=== PATIENT | female | born 1985 | race Caucasian/White ===

== ENCOUNTER 2016-08-03 12:13 | Outpatient (CLI) | payer MEDICAID | END 2016-08-03 12:14 | disposition home or self-care (01) | DX: Z36 Encounter for antenatal screening of mother (principal) ==

== ENCOUNTER 2016-09-01 08:30 | Outpatient (CLI) | payer MEDICAID | END 2016-09-01 08:31 | disposition home or self-care (01) | DX: Z36 Encounter for antenatal screening of mother (principal) ==

== ENCOUNTER 2016-10-12 19:28 | Outpatient (CLI) | payer MEDICAID | END 2016-10-12 19:29 | disposition home or self-care (01) | DX: Z36 Encounter for antenatal screening of mother (principal) ==

== ENCOUNTER 2016-10-29 12:36 | Outpatient (CLI) | payer MEDICAID ==
--- NOTE | 2016-10-31 07:20 | Ultrasound Report ---
OBSTETRICAL ULTRASOUND: 10/29/2016 CLINICAL HISTORY: Patient's for anatomy screening. TECHNIQUE: Real-time scanning was performed with auto service representative static images obtained. LAST MENSTRUAL PERIOD 05/31/2016 Clinical Age 21 weeks 4 days US Age 22 weeks 4 days EFW Hadlock 486 g EFW% Hadlock -- Heart Rate 142 bpm EDC 21 weeks 4 days US EDC 22 weeks 4 days BPD Hadlock 23 weeks 2 days; means cm 56.4 HC Hadlock 22 weeks 2 days; means cm 201.2 AC Hadlock 22 weeks 1 day; means cm 171.5 FL Hadlock 22 weeks 2 days; means cm 38.2 Presentation variable Placental Location posterior Cervical Length 4.28 cm Amniotic Fluid 17.6 FINDINGS: Single fetus is noted in variable positions within the uterus. Composite gestational age by ultrasound is 22 weeks 4 days. EDC by ultrasound is 02/28/2017. This is 7 days more advanced than expected as estimated from patient's LMP. This degree of growth is within normal limits. anatomy at the present time is normal including head, body, spine, four chamber view, cardiac outflow tract, and bladder. heart rate is 142 beats per minute and regular. Normal movement is noted. Placenta is posterior. Amniotic fluid volume index is generous, but still within normal limits measuring 17.6. Umbilical cord may be a two vessel cord. Suggest patient return for reevaluation of the umbilical cord for further evaluation. Umbilical cord insertion site is eccentric. It lies 2-3 cm from the placental edge. If patient does return for reevaluation of the umbilical cord, its insertion site and the placenta should also be evaluated. IMPRESSION: SINGLE FETUS IS NOTED IN VARIABLE POSITIONS WITHIN THE UTERUS WITH COMPOSITE GESTATIONAL AGE BY ULTRASOUND TODAY OF 22 WEEKS 4 DAYS. EDC BY ULTRASOUND IS 02/28/2017. GESTATIONAL AGE BY ULTRASOUND IS 1 WEEK MORE ADVANCED THAN EXPECTED CALCULATED FROM CLINICAL LMP. THIS DEGREE OF GROWTH IS WITHIN NORMAL LIMITS. FETUS ANATOMICALLY APPEARS WITHIN NORMAL LIMITS. UMBILICAL CORD SHOWS EQUIVOCAL FINDINGS IN REGARD TO A TWO VESSEL CORD. SUGGEST PATIENT RETURN FOR FOCAL UMBILICAL CORD EVALUATION. PLACENTA IS POSTERIOR. UMBILICAL CORD INSERTION SITE IS MILDLY ECCENTRIC. IT LIES 2-3 CM FROM THE EDGE OF THE PLACENTA. IF PATIENT RETURNS FOR FOCAL UMBILICAL CORD EVALUATION SUGGEST THE INSERTION SITE ALSO BE REEVALUATED. AMNIOTIC FLUID VOLUME IS GENEROUS, BUT STILL WITHIN NORMAL LIMITS MEASURING 17.6 CM. MTDD
== END 2016-10-29 12:37 | disposition home or self-care (01) ==
LOC: DI 12:36
PROVIDERS: ATTEND Obstetrics & Gynecology
DX: Z36 Encounter for antenatal screening of mother (principal)
CPT/HCPCS: 76811

== ENCOUNTER 2016-12-14 11:23 | Outpatient (CLI) | payer MEDICAID | END 2016-12-14 11:24 | disposition home or self-care (01) | DX: Z34.90 Encounter for supervision of normal pregnancy, unspecified, unspecified trimester (principal) ==

== ENCOUNTER 2016-12-16 13:00 | Outpatient (CLI) | payer MEDICAID ==
--- NOTE | 2016-12-17 14:50 | Ultrasound Report ---
OB FOLLOWUP: 12/16/2016 CLINICAL INDICATION: Followup placental cord insertion. TECHNIQUE: Real-time scanning was performed with home office representative static images obtained. LAST MENSTRUAL PERIOD 05/31/2016 Clinical Age --- US Age 30 weeks 1 day EFW Hadlock 1515 g EFW% Hadlock --- Heart Rate 138 bpm EDC 03/07/2017 US EDC 02/23/2017 BPD Hadlock 30 weeks 0 days; Mean mm 74.9 HC Hadlock 30 weeks 2 days; Mean mm 276.4 AC Hadlock 30 weeks 0 days; Mean mm 258.7 FL Hadlock 30 weeks 2 days; Mean mm 57.8 Presentation variable Placental Location --- Cervical Length 3.84 cm Amniotic Fluid 16.02 cm There is a single viable intrauterine gestation, in variable position. heart rate is 138 BPM. The placenta is posterior, without evidence of previa. Umbilical cord insertion into the placenta appears unremarkable on today's examination. The cord is a three vessel cord. Amniotic fluid volume is normal, with an ANN-MARIE of 16. By size, the fetus measures 30.1 weeks (29.6 weeks by previous sonogram). No free fluid or adnexal lesion is appreciated. IMPRESSION: SINGLE VIABLE INTRAUTERINE GESTATION, WITH EXPECTED GROWTH. UNREMARKABLE PLACENTAL CORD INSERTION AND THREE VESSEL CORD CONFIRMED ON TODAY' S EXAMINATION. DANIELD
== END 2016-12-16 13:01 | disposition home or self-care (01) ==
LOC: DI 13:00
PROVIDERS: ATTEND Obstetrics & Gynecology
DX: Z34.90 Encounter for supervision of normal pregnancy, unspecified, unspecified trimester (principal)
CPT/HCPCS: 76816

== ENCOUNTER 2017-02-08 08:00 | Outpatient (CLI) | payer MEDICAID | END 2017-02-08 08:01 | disposition home or self-care (01) | LOC: LAB.R 08:00 | PROVIDERS: ATTEND Obstetrics & Gynecology | DX: Z34.83 Encounter for supervision of other normal pregnancy, third trimester (principal) | CPT/HCPCS: 87081 ==

== ENCOUNTER 2017-02-28 07:59 | Inpatient (IN) | payer MEDICAID ==
[2017-02-28] MEDS ORDERED: SODIUM CHLORIDE FLUSH 0.9% 10 ML SYRINGE IVP PRN (09:33)
[2017-02-28] MEDS ORDERED: ONDANSETRON 4 MG/2 ML VIAL IVP PRN (09:33)
[2017-02-28] MEDS ORDERED: fentaNYL 100 MCG/2 ML VIAL IVP PRN (09:33)
--- NOTE | 2017-02-28 09:40 | PROVIDER PROGRESS NOTE ---
Subjective - Prog Note Date Prog Note Date: 02/28/17 Prog Note Time: 09:37 - Subjective Pt reports feeling: No change Objective - Vital Signs/Intake & Output Vital Signs: Vital Signs x48h Temp Pulse Resp BP Pulse Ox 02/28/17 08:30 98.2 F 85 18 124/71 99 Assessment/Plan - Problem List (1) Rupture of membranes Impression: 31 yo with a 39w0d IUP SROM since 04:00 Early active labor Contractions Q 3-5 minutes Start oxytocin for delivery to prevent chorioamnionitis Admitted. H&P dictated [id number] (2) Labor established Impression: Early active labor Start pitocin for augmentation Expect Patient desires an unmedicated delivery
[2017-02-28] MEDS ORDERED: OXYTOCIN/SODIUM CHLORIDE 250 ML IV SCH (10:00)
--- NOTE | 2017-02-28 10:31 | HISTORY & PHYSICAL EXAMINATION ---
DATE OF ADMISSION: 02/28/2017 IDENTIFICATION: A 31-year-old G4, P2-0-1-2 with a 39-0/7 week intrauterine . EDC is 03/07, changed by an 8-week ultrasound. PRESENT ILLNESS: This is a patient of [facility] who presented to Labor and Delivery with complaints of contractions, as well as loss of fluid beginning at about 3:30 or 4 o'clock this morning. Initially her contractions were every 15-20 minutes and now it has been reported to be every 3-5 minutes. Nitrazine is positive and the ferning is positive as well. heart tones show a baseline in the 120s with a reactive category 1 tracing. There is some short variables down to the 90s. The patient has had care with us consistently since 07/29/2016 at 8 weeks gestation. So far, she has had 9 visits with us. This has essentially been unremarkable. PAST MEDICAL HISTORY: None. She denies any hypertension, diabetes, or hypothyroidism. PAST SURGICAL HISTORY: None. She denies a cholecystectomy or appendectomy. MEDICATIONS: vitamins. SOCIAL HISTORY: She denies any tobacco, alcohol or illicit drug use. Her significant other's name is Hai and they have a have son, Gary; a daughter , Sarah; and this is a female fetus. She would like to have Nexplanon for control after delivery. PAST OBSTETRICAL HISTORY: One spontaneous . Two term vaginal deliveries , the first at 37 weeks, the second one at 41 weeks. The largest baby weighed 7 pounds 6 ounces. PAST GYNECOLOGIC HISTORY: She denies any abnormal Pap smears or sexually transmitted diseases. FAMILY HISTORY: She denies any female carcinoma, including the breasts, ovaries or uterus. REVIEW OF SYSTEMS: Negative unless otherwise stated. She denies any nausea, vomiting, fevers, chills, diarrhea, or constipation. OBJECTIVE VITAL SIGNS: Temperature is 98.2, heart rate 85, blood pressure 124/71, respiratory rate 18. O2 saturation is 99% on room air. GENERAL: The patient is a well-developed, well-nourished female in no apparent distress. She is alert and oriented x3. CARDIOVASCULAR: Rate is regular, no murmurs or rubs. PULMONARY: Clear to auscultation bilaterally. ABDOMEN: Gravid, nontender. Most recent fundal height measurement was 34 cm at 37 weeks' gestation, estimated weight 7-1/2 pounds. Cervical examination per RN today revealed she is 4 cm dilated, 70% effaced, -2 station, mid position. LABORATORY: laboratories reveal that she is A positive, antibody screen immune, HIV negative, RPR nonreactive, rubella immune, hepatitis B surface antigen nonreactive. Pap smear is a low-grade squamous intraepithelial lesion. Gonorrhea and chlamydia are both negative. anatomical survey consistent with dates and within normal limits. The placenta is posterior. Cervical length is 4.28 cm. ANN-MARIE 17.6 cm. Umbilical cord may be 2 vessel. Eccentric umbilical cord insertion lying 2 to 3 cm from the placental edge. Repeat ultrasound at about 30 weeks' gestation on 12/16/2016 shows EFW of 1515 grams. Placenta length of 3.84 cm and amniotic fluid index of 16.02 cm. The placenta is posterior without evidence of previa. Umbilical cord insertion into Placenta appears unremarkable and there was a 3-vessel umbilical cord. 1 hour GTT is 131 and GBS screen is negative. She received the 2016 flu vaccine in March and a Tdap at 32 weeks on 01/13/2017. ASSESSMENT 1. A 31-year-old G4, P2-0-1-2 with a 39-0/7 week intrauterine . 2. Spontaneous rupture of membranes at 0330 or 0400. 3. Early active labor. PLAN 1. We will admit. 2. Obtain CBC and type and hold. 3. The patient desires an unmedicated delivery. 4. Anticipate spontaneous vaginal delivery. 5. We will augment with Pitocin. 6. Start antibiotics at 18 hours, rupture of membranes if undelivered. 7. Anticipate giving the patient Nexplanon for contraception after delivery. JOB #: [id number] EXT JOB #:[id number] DAI
[2017-02-28] MEDS: LACTATED RINGERS 1,000 ML IV SCH (10:33)
[2017-02-28 11:44] LABS: BASOPHILS % (AUTO) 0.2 %; EOSINOPHILS # (AUTO) 0.1 10^3/uL (0.0-0.7); EOSINOPHILS % (AUTO) 1.1 %; HCT - HEMATOCRIT 36.3 % (37.0-47.0); HGB - HEMOGLOBIN 12.1 g/dL (12.0-16.0); LYMPHOCYTES # (AUTO) 1.9 10^3/uL (1.5-3.5); MEAN CORPUSCULAR HEMOGLOBIN 28.1 pg (27.0-31.0); MEAN CORPUSCULAR HGB CONC 33.4 g/dL (32.0-36.0); MEAN CORPUSCULAR VOLUME 84.1 fL (81.0-99.0); MEAN PLATELET VOLUME 8.8 fL (7.9-10.8); MONOCYTES # (AUTO) 0.5 10^3/uL (0.0-1.0); MONOCYTES % (AUTO) 4.1 %; NEUTROPHILS # (AUTO) 9.5 10^3/uL (1.5-6.6); NEUTROPHILS % (AUTO) 78.6 %; RED BLOOD COUNT 4.31 10^6/uL (4.20-5.40)
[2017-02-28] MEDS ORDERED: LIDOCAINE 1% 50 ML MDV ONE (12:04)
[2017-02-28] MEDS ORDERED: MINERAL OIL LIGHT 10 ML MC ONE (12:04)
--- NOTE | 2017-02-28 12:34 | DELIVERY NOTE ---
Delivery Note - Labor Labor: positive: Spontaneous - Delivery Method Delivery Method: positive: Spontaneous vaginal delivery - Presentation Presentation: positive: Vertex, OA - occiput anterior - Nuchal Cord Nuchal Cord: positive: Present (X 1), Reduced - Amniotic Fluid Description Amniotic Fluid Description: positive: Clear - Episiotomy Type Episiotomy Type: positive: None - Laceration Laceration: positive: None - Delivery Outcome Delivery Outcome: positive: Livebirth - Brandon: positive: Placed in direct skin contact with mother sex: positive: Female : 9 : 9 - Cord Cord: positive: 3 vessels - Placenta Placenta: positive: Intact, Spontaneous - Estimated Blood Loss Estimated Blood Loss (in cc): 250 - Post Delivery Events Post Delivery Events: positive: No post delivery events - Delivery Comments (Free Text/Narrative) Delivery Comments (Free Text/Narrative): 31 yo with a 39w0d IUP presented to L&D with complaints of LOF since 03: 30 or 04:00 and contractions. On initial RN CVE, 4/90/-1. Baseline FHT's 120's and reactive with a category 1 tracing. Contractions Q 3-5 minutes. Positive ferning and nitrazine. The patient was admitted and given 1 dose of fentanyl 50 mcg IV. She viable female fetus, Elisha. Nuchal cord x 1 reduced and compound left arm delivered posteriorly. Placenta delivered spontaneously, intact with 3VC. EBC 250 mL. Intact perineum. No complications. Routine care. Nexplanon planned for contraception. Rx for ibuprofen to be sent to [facility] [place]Note 2] in [place]. Will handwrite Rx for vicodin for breakthrough pain. Labs, EKG, Meds, Allergy - Lab Results Fish Bones: 02/28/17 09:33 Other Lab Results: Lab Results x24hrs 02/28/17 Range/Units 09:33 WBC 12.0 H (4.8-10.8) x10^3/uL RBC 4.31 (4.20-5.40) 10^6/uL Hgb 12.1 (12.0-16.0) g/dL Hct 36.3 L (37.0-47.0) % MCV 84.1 (81.0-99.0) fL MCH 28.1 (27.0-31.0) pg MCHC 33.4 (32.0-36.0) g/dL RDW 14.0 (12.0-15.0) % Plt Count 223 (130-450) 10^3/uL MPV 8.8 (7.9-10.8) fL Neut # 9.5 H (1.5-6.6) 10^3/uL Lymph # 1.9 (1.5-3.5) 10^3/uL Douglas # 0.5 (0.0-1.0) 10^3/uL Eos # 0.1 (0.0-0.7) 10^3/uL Baso # 0.0 (0.0-0.1) 10^3/uL Absolute Nucleated RBC 0.00 x10^3/uL Nucleated RBCs 0.0 /100WBC - Medications Medications: Ambulatory Orders Medication Instructions Recorded Confirmed Omeprazole Magnesium [Prilosec Otc] 20 mg PO DAILY #30 tablet. 06/06/14 Omeprazole 20 mg PO DAILY #30 capsule. 08/12/14 Ondansetron Odt [Zofran] 4 mg TL Q6H PRN #10 tablet 08/12/14 - Allergy Allergy: Allergies Allergy/AdvReac Type Severity Reaction Status Date / Time No Known Drug Allergies Allergy Verified 10/10/12 15:17 Omeprazole Magnesium [Prilosec Otc] 20 mg PO DAILY #30 tablet. 06/06/14 Omeprazole 20 mg PO DAILY #30 capsule. 08/12/14 Ondansetron Odt [Zofran] 4 mg TL Q6H PRN #10 tablet 08/12/14
[2017-02-28] MEDS ORDERED: HYDROCORTISONE/PRAMOXINE 10 GM PR PRN (12:37)
[2017-02-28] MEDS ORDERED: OXYTOCIN/SODIUM CHLORIDE 250 ML IV ONE (12:37)
[2017-02-28] MEDS ORDERED: WITCH HAZEL/GLYCERIN 1 EACH MED..PAD TOP PRN (12:37)
[2017-02-28] MEDS ORDERED: MAGNESIUM HYDROXIDE 2,400 MG/30 ML UDC PO PRN (12:37)
[2017-02-28] MEDS ORDERED: HYDROcod/ACETAM 5/325 MG TABLET PO PRN (12:37)
[2017-02-28] MEDS ORDERED: diphenhydrAMINE 25 MG CAPSULE PO PRN (12:37)
[2017-02-28] MEDS ORDERED: SIMETHICONE CHEW 80 MG TABLET PO PRN (12:37)
[2017-02-28] MEDS: ACETAMINOPHEN 325 MG TABLET PO SCH ×2 (13:56→21:52)
[2017-02-28] MEDS: CELECOXIB 100 MG CAPSULE PO SCH (18:03)
[2017-02-28] MEDS ORDERED: CELECOXIB 100 MG CAPSULE PO SCH (21:00)
[2017-02-28] MEDS ORDERED: DOCUSATE SODIUM 100 MG CAPSULE PO SCH (21:00)
[2017-02-28] MEDS ORDERED: ceFAZolin 2 GM/50 ML 50 ML IV ONE (22:00)
[2017-03-01] MEDS: CELECOXIB 100 MG CAPSULE PO SCH (06:17)
[2017-03-01] MEDS ORDERED: PANTOPRAZOLE 40 MG TABLET PO SCH (07:00)
[2017-03-01] MEDS: ACETAMINOPHEN 325 MG TABLET PO SCH (07:54)
[2017-03-01 08:21] VITALS: BP 128/76
--- NOTE | 2017-03-01 08:42 | PROVIDER PROGRESS NOTE ---
Subjective - Prog Note Date Prog Note Date: 03/01/17 Prog Note Time: 08:40 - Subjective Pt reports feeling: Improved Subjective: Patient sitting in bed, holding sleeping baby. Got about 2 hours of sleep last PM. Baby latching well. Decreasing lochia. Has urinated three times already. No nausea or vomiting. Mild pain. taking care of kids at home. Planning to go home today. Objective - Vital Signs/Intake & Output Reviewed Vital Signs: Yes Vital Signs: Vital Signs x48h Temp Pulse Resp BP Pulse Ox 03/01/17 08:00 98.1 F 86 18 128/76 99 Intake & Output: Intake & Output 02/26/17 02/27/17 02/28/17 03/01/17 23:59 23:59 23:59 23:59 Intake Total 400 Output Total 250 Balance 150 - Objective General Appearance: positive: No acute distress Eyes Bilateral: positive: Normal inspection Abdomen: positive: Non-tender (Firm fundus) Neurologic/Psychiatric: positive: Oriented x3 - Lab Results Fish Bones: 02/28/17 09:33 Other Labs: Lab Results x24hrs 02/28/17 Range/Units 09:33 WBC 12.0 H (4.8-10.8) x10^3/uL RBC 4.31 (4.20-5.40) 10^6/uL Hgb 12.1 (12.0-16.0) g/dL Hct 36.3 L (37.0-47.0) % MCV 84.1 (81.0-99.0) fL MCH 28.1 (27.0-31.0) pg MCHC 33.4 (32.0-36.0) g/dL RDW 14.0 (12.0-15.0) % Plt Count 223 (130-450) 10^3/uL MPV 8.8 (7.9-10.8) fL Neut # 9.5 H (1.5-6.6) 10^3/uL Lymph # 1.9 (1.5-3.5) 10^3/uL Juncos # 0.5 (0.0-1.0) 10^3/uL Eos # 0.1 (0.0-0.7) 10^3/uL Baso # 0.0 (0.0-0.1) 10^3/uL Absolute Nucleated RBC 0.00 x10^3/uL Nucleated RBCs 0.0 /100WBC Assessment/Plan - Problem List (1) Delivery normal Impression: 31 yo S/p 02/28/2017 Normal recovery Routine care Anticipate discharge to home this evening after baby has been discharged Patient to follow up with myself in 6 weeks for a routine visit. Will discuss contraception at visit, likely Nexplanon. Showers OK Call for worsening fevers, chills, abdominal pain or vaginal bleeding Rx motrin 800 mg efax[facility]ed to [facility]. Handwritten Rx vicodin will be given to the patient for discharge. Discharge Plan Disposition: Home, Self Care Condition: Good Diet: Regular Activity Restrictions: Activity as Tolerated Shower Restrictions: Yes Driving Restrictions: Yes (Do not drive after taking vicodin) Weight Bearing: Full Weight No Smoking: If you smoke, Please STOP! Call for help.
[2017-03-01] MEDS: LACTATED RINGERS 1,000 ML IV SCH (09:43)
[2017-03-01] MEDS: SODIUM CHLORIDE FLUSH 0.9% 10 ML SYRINGE IVP SCH ×2 (09:43→09:53)
--- NOTE | 2017-03-01 16:47 | Labor Flowsheet ---
Labor Flowsheet Datetime Report Generated by CPN: 03/01/2017 16:47 Datetime: 03/01/2017 12:35 VITAL SIGNS NBP Sys/Mery/Mean (mmHg): 124 : 81 : 91 Pulse: 83 SpO2 (%): 100 COMMUNICATION LaborFlag: Labor Datetime: 02/28/2017 12:09 UTERINE ACTIVITY Monitor Mode: External Monitor Interventions for UA: Boomer Adjusted Frequency (min): 2-3 Quality: Strong Duration (sec): 60-90 Pattern: Normal: <= 5 Contractions in 10 Minutes Resting Tone (Palpate): Relaxed Contraction Comments: pushing with ctx ASSESSMENT A Monitor Mode: External US Monitor Interventions for FHR: Ultrasound Adjusted FHR Baseline Rate : 90 FHR Baseline Changes: Bradycardia Decelerations: Variable Actions for Decelerations: Oxygen Applied; Provider Notified Category: Category II Comments: mother pushing with each ctx. heart rate in 90s. US adjusted but unable to get baseline i n between ctx due to pt frequent pushing and positon. baby delivered 1209 with nuchal x1. apgars 9/9 Datetime: 02/28/2017 12:00 STAGE 2 Pushing: Coached on Pushing; Urge to Push Pushing Position: Pushing with Contractions; Pushing Lithotomy Datetime: 02/28/2017 11:52 VAGINAL EXAM Dilatation (cm): 9.5 Effacement (%): 100 Station: 1 Exam by: GRADY Floyd Membrane Status: Ruptured Datetime: 02/28/2017 11:50 Variability: Moderate 6-25 bpm Accelerations: None Datetime: 02/28/2017 11:30 ASSESSMENT B Monitor Mode: External US Provider Reviewed Strip: Yes (Annotations: Dr. Floyd @ BS) Datetime: 02/28/2017 11:02 Membranes Rupture Method: Spontaneous Amniotic Fluid Color: Clear Amniotic Fluid Amount: Small Amniotic Fluid Odor: Normal Vaginal Bleeding: Normal Show Pool: Negative Nitrazine: Positive Fern: Positive Cervix, Consistency: Soft Cervix, Position: Midposition Membrane Comments: 0430 SROM Vaginal Exam Comments: 1110 MATERNAL ASSESSMENT Headache: Denies PATIENT CARE IV/Blood Work: IV Started; Labs Drawn with IV Start Oxygen Method: Room Air Patient Position/Activity: High Fowlers Hygiene: Anuja Care I/O Interventions: Clear Liquids Given Datetime: 02/28/2017 10:30 Stage of : Labor
== END 2017-03-01 16:35 | disposition home or self-care (01) | DRG 775 ==
LOC: WFO 07:59 → FBP 08:01 → WFO 09:32 → FBP 09:33
PROVIDERS: ADMIT Obstetrics & Gynecology; ATTEND Obstetrics & Gynecology
PROC: 10E0XZZ Delivery of Products of Conception, External Approach (ICD-10-PCS; principal; 2017-02-28)
DX: O42.02 Full-term premature rupture of membranes, onset of labor within 24 hours of rupture (principal); O32.6XX0 Maternal care for compound presentation, not applicable or unspecified; O69.1XX0 Labor and delivery complicated by cord around neck, with compression, not applicable or unspecified; Z3A.39 39 weeks gestation of pregnancy; Z37.0 Single live birth
CPT/HCPCS: 85025; 99214

== ENCOUNTER 2018-07-04 10:30 | Emergency (ER) | payer MEDICAID ==
[2018-07-04 11:49] LABS: BASOPHILS % (AUTO) 0.5 %; EOSINOPHILS % (AUTO) 0.4 %; HGB - HEMOGLOBIN 13.7 g/dL (12.0-16.0); LYMPHOCYTES # (AUTO) 1.9 10^3/uL (1.5-3.5); LYMPHOCYTES % (AUTO) 26.2 %; MEAN CORPUSCULAR HEMOGLOBIN 29.9 pg (27.0-31.0); MEAN CORPUSCULAR HGB CONC 34.1 g/dL (32.0-36.0); MEAN CORPUSCULAR VOLUME 87.6 fL (81.0-99.0); MEAN PLATELET VOLUME 7.6 fL (7.9-10.8); MONOCYTES # (AUTO) 0.2 10^3/uL (0.0-1.0); MONOCYTES % (AUTO) 3.2 %; NEUTROPHILS # (AUTO) 5.2 10^3/uL (1.5-6.6); NEUTROPHILS % (AUTO) 69.7 %; PLT - PLATELET COUNT 281 10^3/uL (130-450); RED BLOOD COUNT 4.58 10^6/uL (4.20-5.40); RED CELL DISTRIBUTION WIDTH 12.7 % (12.0-15.0); WHITE BLOOD COUNT 7.4 x10^3/uL (4.8-10.8)
[2018-07-04 12:00] LABS: ALBUMIN 3.9 g/dL (3.2-5.5); ALBUMIN/GLOBULIN RATIO 1.1 (1.0-2.2); BILIRUBIN,TOTAL 0.6 mg/dL (0.2-1.0); CALCIUM 9.1 mg/dL (8.5-10.3); CREATININE 0.5 mg/dL (0.4-1.0); TOTAL PROTEIN 7.6 g/dL (6.7-8.2)
[2018-07-04 12:48] LABS: BILIRUBIN,URINE NEGATIVE (NEGATIVE); GLUCOSE, URINE (UA) NEGATIVE (NEGATIVE); KETONES,URINE (UA) NEGATIVE (NEGATIVE); LEUKOCYTE ESTERASE, URINE NEGATIVE (NEGATIVE); NITRITE,URINE NEGATIVE (NEGATIVE); OCCULT BLOOD,URINE NEGATIVE (NEGATIVE); PROTEIN,URINE NEGATIVE (NEGATIVE); UROBILINOGEN,URINE 0.2 (NORMAL) E.U./dL (NORMAL)
[2018-07-04 12:54] LABS: CLARITY,URINE CLEAR (CLEAR)
--- NOTE | 2018-07-04 13:17 | ED Physician Documentation ---
PD HPI FEMALE - Stated complaint Stated Complaint: HEAVY BLEEDING/7WKS - Chief complaint Chief Complaint: Abd Pain - History obtained from History obtained from: Patient - History of Present Illness Timing - onset: Yesterday Timing - duration: Days (1) Timing - details: Gradual onset Pain level max: 3 Pain level max: 1 Associated symptoms: Pelvic pain (crampy). 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 states has had a miscarriage and a blighted ovum in the past. Review of Systems Constitutional: denies: Fever, Chills Ears: denies: Ear pain Nose: denies: Rhinorrhea / runny nose, Congestion Throat: denies: Sore throat Cardiac: denies: Chest pain / pressure Respiratory: denies: Cough GI: denies: Vomiting, Diarrhea : denies: Dysuria, Frequency, Hesitancy Skin: denies: Rash Musculoskeletal: denies: Neck pain, Back pain Neurologic: denies: Headache PD PAST MEDICAL HISTORY - Past Medical History Past Medical History: No Cardiovascular: None Respiratory: None Endocrine/Autoimmune: None GI: None MAPPING PILOT: None : None HEENT: None Musculoskeletal: None Derm: None - Past Surgical History Past Surgical History: No - Present Medications Home Medications: Ambulatory Orders Medication Instructions Recorded Confirmed No Known Home Medications 07/04/18 07/04/18 - Allergies Allergies/Adverse Reactions: Allergies Allergy/AdvReac Type Severity Reaction Status Date / Time No Known Drug Allergies Allergy Verified 07/04/18 11:03 - Social History Does the pt smoke?: Yes Smoking Status: Current every day smoker Does the pt drink ETOH?: No Does the pt have substance abuse?: No - Immunizations Immunizations are current?: Yes - POLST Patient has POLST: No PD ED PE NORMAL - Vitals Vital signs reviewed: Yes - General General: Alert and oriented X 3, No acute distress - HEENT HEENT: Moist mucous membranes - Neck Neck: Supple, no meningeal sign - Cardiac Cardiac: RRR, Strong equal pulses - Respiratory Respiratory: No respiratory distress, Clear bilaterally - Abdomen Abdomen: Soft, Non tender, Non distended - Female Female : Pt declined - Back Back: No CVA TTP - Derm Derm: Warm and dry, No rash - Extremities Extremities: No edema, No calf tenderness / cord - Neuro Neuro: Alert and oriented X 3 Results - Vitals Vitals: Vital Signs - 24 hr 07/04/18 07/04/18 07/04/18 10:37 11:09 14:07 Temperature 36.4 C L 36.4 C L 37.2 C Heart Rate 84 84 60 Respiratory 16 16 12 Rate Blood Pressure 134/98 H 134/98 H 114/70 O2 Saturation 100 100 99 07/04/18 14:54 Temperature 37.1 C Heart Rate 61 Respiratory 14 Rate Blood Pressure 116/71 O2 Saturation 99 Oxygen O2 Source Room air - Labs Labs: Laboratory Tests 07/04/18 07/04/18 07/04/18 11:40 11:40 11:40 WBC 7.4 RBC 4.58 Hgb 13.7 Hct 40.1 MCV 87.6 MCH 29.9 MCHC 34.1 RDW 12.7 Plt Count 281 MPV 7.6 L Neut # (Auto) 5.2 Lymph # (Auto) 1.9 Bollinger # (Auto) 0.2 Eos # (Auto) 0.0 Baso # (Auto) 0.0 Absolute Nucleated RBC 0.00 Nucleated RBC % 0.0 Sodium 136 Potassium 3.5 Chloride 104 Carbon Dioxide 23 Anion Gap 9.0 BUN 8 Creatinine 0.5 Estimated GFR (MDRD) 144 Glucose 90 Calcium 9.1 Total Bilirubin 0.6 AST 18 ALT 14 Alkaline Phosphatase 56 Total Protein 7.6 Albumin 3.9 Globulin 3.7 Albumin/Globulin Ratio 1.1 Lipase 28 HCG, Quant Urine Color Urine Clarity Urine pH Ur Specific Meeker Urine Protein Urine Glucose (UA) Urine Ketones Urine Occult Blood Urine Nitrite Urine Bilirubin Urine Urobilinogen Ur Leukocyte Esterase Ur Microscopic Review Urine Culture Comments Blood Type A POSITIVE 07/04/18 07/04/18 11:40 12:35 WBC RBC Hgb Hct MCV MCH MCHC RDW Plt Count MPV Neut # (Auto) Lymph # (Auto) Bollinger # (Auto) Eos # (Auto) Baso # (Auto) Absolute Nucleated RBC Nucleated RBC % Sodium Potassium Chloride Carbon Dioxide Anion Gap BUN Creatinine Estimated GFR (MDRD) Glucose Calcium Total Bilirubin AST ALT Alkaline Phosphatase Total Protein Albumin Globulin Albumin/Globulin Ratio Lipase HCG, Quant 1199.70 Urine Color YELLOW Urine Clarity CLEAR Urine pH 7.0 Ur Specific Meeker 1.010 Urine Protein NEGATIVE Urine Glucose (UA) NEGATIVE Urine Ketones NEGATIVE Urine Occult Blood NEGATIVE Urine Nitrite NEGATIVE Urine Bilirubin NEGATIVE Urine Urobilinogen 0.2 (NORMAL) Ur Leukocyte Esterase NEGATIVE Ur Microscopic Review NOT INDICATED Urine Culture Comments NOT INDICATED Blood Type - Rads (name of study) OB US Radiology: Prelim report reviewed, EMP read contemporaneously, See rad report (Findings of crown-rump length greater than 7 mm with no detectable heartbeat are concerning for non-viability. Recommend correlation to serial beta hCG and follow-up with transvaginal ultrasound for optimal visualization if clinically indicated. ) PD MEDICAL DECISION MAKING - ED course Complexity details: reviewed results, re-evaluated patient, considered differential, d/w patient ED course: 33-year-old female with what appears to be a miscarriage today. No detectable heart rate on US. Her beta hCG is lower than I would expect for this stage of . We will have her follow-up with gynecology for further care. Patient counseled regarding signs and symptoms for which I believe and urgent re-evaluation would be necessary. Patient with good understanding of and agreement to plan and is comfortable going home at this time This document was made in part using voice recognition software. While efforts are made to proofread this document, sound alike and grammatical errors may occur. Departure - Departure Disposition: 01 Home, Self Care Clinical Impression: Incomplete miscarriage Condition: Good Instructions: ED Miscarriage Incom Follow-Up: your,doctor in 3 days. [Other] Comments: It does appear that you are having a miscarriage today. You need to follow-up with your doctor in 3 days for repeat hCG to ensure that it is decreasing appropriately. Return for worsening pain or fevers. Your hCG is approximately 2000 today Discharge Date/Time: 07/04/18 14:54
--- NOTE | 2018-07-04 14:32 | Ultrasound Report ---
Reason: 7 weeks preg, vag bleed Procedure Date: 07/04/2018 Accession Number: [id number] / [id number] Procedure: US - OB First Trimester CPT Code: FULL RESULT: EXAM: FIRST TRIMESTER OBSTETRIC ULTRASOUND (Less than 11 weeks) EXAM DATE: 07/04/2018 01:36 PM. CLINICAL HISTORY: 7 weeks , vaginal bleeding. LMP: Unknown. COMPARISONS: None. TECHNIQUE: Transabdominal ultrasound examination with static image documentation. CLINICAL DATES: Not established. ASSESSMENT: Gestational Sac: Single intrauterine. Mean gestational sac diameter: 43.6 mm. Embryo: CRL (crown-rump length) 21.8 mm = 8 weeks 4 days. Cardiac activity: None detected. Yolk sac: Not seen. Amniotic fluid: Not accurately assessed at this gestational age. Early placenta: Not visible at this gestational age. Other: No perigestational fluid collection demonstrated. MATERNAL STRUCTURES: Uterus: Retroverted. Unremarkable. Cervix: Closed. Right Ovary/Adnexa: The ovary measures 3.1 x 1.7 x 1.4 cm, volume 3.8 cc. Unremarkable. Left Ovary/Adnexa: The ovary measures 2.8 x 2.0 x 1.9 cm, volume 5.5 cc. Unremarkable. Free Fluid: None. Other: None. IMPRESSION: Findings of crown-rump length greater than 7 mm with no detectable heartbeat are concerning for non-viability. Recommend correlation to serial beta hCG and follow-up with transvaginal ultrasound for optimal visualization if clinically indicated. CRITICAL RESULT: The findings were discussed with Dr. Jaimes on 07/04/2018 at 2:30 PM. JAYLA
[2018-07-04 14:56] VITALS: BP 116/71
== END 2018-07-04 14:54 | disposition home or self-care (01) ==
LOC: ED 10:30
DX: O03.4 Incomplete spontaneous abortion without complication (principal); F17.200 Nicotine dependence, unspecified, uncomplicated
CPT/HCPCS: 36415; 76801; 80053; 81001; 81003; 83690; 84702; 85025; 86900; 86901; 87086; 99283

== ENCOUNTER 2018-07-13 13:58 | Outpatient (CLI) | payer MEDICAID | END 2018-07-13 23:59 | disposition home or self-care (01) | LOC: LAB.N 13:58 | PROVIDERS: ATTEND Obstetrics & Gynecology | DX: O03.4 Incomplete spontaneous abortion without complication (principal) | CPT/HCPCS: 36415; 84702 ==

== ENCOUNTER 2025-01-09 00:19 | Inpatient (IN) ==
--- OUTSIDE RECORDS SUMMARY | 2025-01-09 00:23 | EXTERNAL MEDICAL SUMMARY RPT | Continuity of Care Document ---
Author Organization [facility] Address [address] [place] [id number] Phone Problems date description facility 2024-08-31 12:31 Encounter for superv ision of other normal , second trimester [facility] 2024-08-31 12:34 Encounter for superv ision of other normal , second trimester [facility] 2024-10-11 09:01 Encounter for superv ision of other normal , second trimester [facility] 2024-10-11 09:32 Encounter for superv ision of other normal , second trimester [facility] 2024-10-11 09:46 Encounter for superv ision of other normal , second trimester [facility] 2024-10-11 13:49 Encounter for superv ision of other normal , second trimester [facility] 2024-10-26 08:07 Encounter for superv ision of other normal , second trimester [facility] 2024-10-30 10:17 Encounter for superv ision of other normal , second trimester [facility] 2024-11-01 15:03 Encounter for superv ision of other normal , second trimester [facility] 2024-11-02 00:01 Encounter for superv ision of other normal , second trimester [facility] 2024-11-04 07:08 Encounter for superv ision of other normal , second trimester [facility] 2024-11-09 07:19 Encounter for superv ision of other normal , second trimester [facility] 2024-11-09 07:19 Encounter for superv ision of normal , unspecified, unspecified trimester [facility] 2024-11-09 08:28 Encounter for superv ision of other normal , second trimester [facility] 2024-11-09 08:29 Encounter for superv ision of other normal , second trimester [facility] 2024-11-09 08:31 Encounter for superv ision of other normal , [facility] 2024-[facility]-09 09:17 Encounter for superv ision of other normal , second [facility] 2024-11-09 09:17 Encounter for superv ision of normal , unspecified, unspecified [facility] 2024-11-09 12:20 Encounter for superv ision of other normal , [facility] 2024-11-09 12:20 Encounter for superv ision of normal , unspecified, unspecified [facility] 2024-11-10 00:02 Encounter for superv ision of other normal , second trimester [facility] 2024-11-10 00:02 Encounter for superv ision of normal , unspecified, unspecified trimester [facility] 2024-11-14 09:31 Encounter for superv ision of other normal , second trimester [facility] 2024-12-12 20:55 Encounter for superv ision of other normal , [facility] 2024-12-13 00:01 Encounter for superv ision of other normal , second [facility] 2024-12-13 10:14 Encounter for superv ision of other normal , second trimester [facility] 2024-12-17 15:09 Supervision of elderly angel locke, second [facility] 2024-12-19 09:30 Abnormal ultrasonic finding on screening of mother [facility] 2024-12-19 13:15 Abnormal ultrasonic finding on screening of mother [facility] 2024-12-19 13:18 Abnormal ultrasonic finding on screening of mother [facility] 2024-12-24 15:08 Abnormal ultrasonic finding on screening of mother [facility] 2024-12-25 17:11 Encounter for screeni ng for Streptococcus B [facility] 2024-12-25 17:17 Encounter for screeni ng for Streptococcus B [facility] 2024-12-25 17:19 Abnormal glucose complicating p regnancy [facility] 2024-12-25 17:19 Encounter for screeni ng for Streptococcus B [facility] 2024-12-25 20:09 Abnormal glucose complicating p [facility] 2024-12-25 20:09 Encounter for screeni ng for Streptococcus B [facility] 2024-12-25 20:11 Abnormal ultrasonic finding on screening of mother [facility] 2024-12-25 20:11 [facility] 20[facility]25 20:11 Encounter for screeni ng for Streptococcus B [facility] 2024-12-25 22:25 Abnormal ultrasonic finding on screening of mother [facility] 2024-12-26 00:02 Abnormal ultrasonic finding on screening of mother [facility] 2024-12-26 00:02 Abnormal glucose complicating p [facility] 2024-12-26 00:02 Encounter for screeni ng for Streptococcus B [facility] 2024-12-26 00:04 Abnormal glucose complicating p [facility] 2024-12-26 00:04 Encounter for screeni ng for Streptococcus [facility] 2024-12-26 07:21 Abnormal glucose complicating p [facility] 2024-12-26 07:21 Encounter for screeni ng for Streptococcus [facility] 2024-12-26 09:56 Abnormal glucose complicating p [facility] 2024-12-26 09:56 Encounter for screeni ng for Streptococcus B [facility] 2025-01-04 12:06 Obesity complicating , third trimester [facility] 2025-01-04 12:06 Abnormal glucose complicating p [facility] 2025-01-08 12:27 Obesity complicating , third trimester [facility] 2025-01-08 12:27 Abnormal glucose complicating p [facility] Results/Labs test date facility value unit notes Result panel 1 HGB - HEMOGLOBIN 2024-11-09 08[facility] /[facility] (missing) RED CELL DISTRIBUTION WIDTH 2024-11-09 08:24 [facility] 12.[facility] % (missing) GLUCOSE,1H PP 50GM DOSE 2024-11-09 08:24 [facility] 173 mg/dl Social History date description facility
[2025-01-09] MEDS ORDERED: LACTATED RINGERS 1,000 ML IV PRN (03:27)
[2025-01-09] MEDS ORDERED: METHYLERGONOVINE 0.2 MG/ML VIAL IM PRN (03:27)
[2025-01-09] MEDS ORDERED: CARBOPROST TROMETHAMINE 250 MCG/ML VIAL IM PRN (03:27)
[2025-01-09] MEDS ORDERED: LABETALOL 20 MG/4 ML SYRINGE IVP PRN ×5 (03:27→07:40)
[2025-01-09] MEDS ORDERED: hydrALAZINE INJ 20 MG/ML VIAL IVP PRN ×3 (03:27→07:40)
[2025-01-09] MEDS ORDERED: TRANEXAMIC ACID IN NACL 1,000 MG/100 ML BAG IV PRN (03:27)
[2025-01-09] MEDS ORDERED: SODIUM CHLORIDE FLUSH 0.9% 10 ML SYRINGE IVP PRN (03:27)
[2025-01-09] MEDS ORDERED: TERBUTALINE 1 MG/ML VIAL SUBQ PRN (03:27)
[2025-01-09] MEDS ORDERED: fentaNYL 100 MCG/2 ML VIAL IVP PRN (03:27)
[2025-01-09] MEDS ORDERED: OXYTOCIN 10 UNIT/ML VIAL IM PRN (03:27)
--- NOTE | 2025-01-09 03:54 | PROVIDER PROGRESS NOTE ---
Plan Plan: 39yo presents to L&D triage @ 39+2 weeks gestation after regular contractions through the evening/night. Upon presentation she was 5cm and angella q 8-10 minutes. Minimal cervical change in 90 minutes. However she progressed to 7cm by the end of the third hour and she was admitted. Category I FHR, 125, moderate variability, + accelerations, no significant decelerations.
--- NOTE | 2025-01-09 04:02 | HISTORY & PHYSICAL EXAMINATION ---
Admit History Smoking Status: Current every day smoker Other Maternal History Other Maternal History: HPI: This 39 yo @ 39+2 weeks by LMP and confirmed by 8+6 week ultrasound. She had began to contract irregularly through last evening and overnight until they were about every 10 minutes apart. Upon arrival her cervix was 5cm and vertex with intact membranes. During triage she made made cervical change to 7/75%/-1 by RN exam and was admitted as she is now in transitional labor. Reviewed that risks of labor include but are not limited to section, prolonged labor, vacuum extraction, episotomy, hemorrhage, and additional risks exist re: prolonged second stage related to extraction. Reviewed back up OBGYN is available for consultations, emergency interventions and transfer of care if indicted. She has been a patient of [facility] for the duration of her which has remained uncomplicated with the exception of elevated 1 hour gtt (normal glucose monitoring), elevated BMI, advanced maternal age. ROS: No Headache, visual changes or right upper quadrant abdominal pain. Denies significant N/V. Denies urinary urgency or dysuria. All other symptoms reviewed and were negative except per HPI. Recent BP: 127/84 Labs: pending Last u/s EFW: 1401 g, 67% @ 30 weeks gestation Total maternal weight gain: 42# In the event of an emergency, ACCEPTS the administration of blood products OB hx: G1: 10/22/2008 Male. [place]. 40 weeks 6#7oz. Extensive perineal repair. G2: 2011 G3: 10/16/2012 . Female (Sarah). [facility]. 40 weeks 6# 9oz.2nd degree perineal laceration. Delayed hemorrhage (6 days) presented to ED. Sutures repaired and given misoprostol. G4: 02/28/2017 . Female (Elisha) 39 weeks. 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 Family Hx: Denies family history of congenital anomalies, Cystic Fibrosis or chromosomal abnormalities Allergies: NKDA Medications: PNV, tums LMP: 04/09/2024 OMAR by LMP: 01/14/2025 US: @ 8.6wks c/w LMP dating (OMAR by U/S 01/19/2025) Final OMAR: 01/14/2025 12/13/2024 growth ultrasound: 2637 g, 67% percentile @ 35 weeks Pre- Weight: 149 lb BMI: 32.1 Blood type: A pos Antibody: Negative CBC: PLT 279 HCT 35.1 HGB 11.8 RUB: Equivicol VZV: Immune HBsAg: negative HepC: NR RPR/AB-EIA: NR HIV: NR PAP: 04/05/2024 normal GC/CT: 07/16/2024 HSV: denies in self and partner Genetic testing: NIPT Negative Covid: out of season Flu: out of season FAS: 11/01/2024 Placenta: anterior Cord: 3VC ANN-MARIE: 15.9cm EFW: 1401g 67%tile Cardiac outflow tracks not visualized 12/12/2024, 11/01/2024, finally visualized and identified as normal on 12/25/2024. 50gm OGCT: 173 3HR GTT: profiling vs 3 hour. TDAP: Declines Breast Pump: 11/23/2024 3rd trimester 36.6/11.7 PLT 237 3rd trimester RPR: NR GBS:negative Delivery plan: Unmedicated delivery, perineal support (hx significant tear with 1st delivery) MOD: Anticipate Contraception: Physical exam: Breathing without difficulty Abdomen gravid, soft, nontender. EFW 3400 FHR baseline 125, moderate variability, + accelerations, no decelerations Contractions palpate moderate to strong every 3-8 minutes soft resting tone SVE 7cm by RN exam , vertex, membranes intact Bilateral LE's trace edema Mood is good. Assessment: 39 yo @ 39+2 weeks gestation by 8+4 wk U/S transitional labor FHR 130 Cat I GBS NEG Plan: Admit to [facility] for expectant management Continuous monitoring/ Intermittent heart rate auscultation as indicated by wellbeing and labor status Jacuzzi PRN. Nitrous oxide PRN. Support labor comfort measures. Epidural PRN Maternal Request. Anticipate . Meds/Allgy Home Medications Ambulatory Orders Medication Instructions Recorded Confirmed vits no.126-ferrous fum tab PO QDAY 06/11/24 01/08/25 28 mg iron-folic acid 800 mcg tablet (Classic ) calcium carbonate (Tums) 200 mg PO BID 10/11/2401/08 lancets 21 gauge (Color Lancets) #200 ea 11/12/2410/28 blood-glucose meter (True Metrix #1 ea 12/09/24 Air Glucose Meter) blood sugar diagnostic (True #100 ea 12/13/24 01/08/25 Metrix Glucose Test Strip) Allergies Allergies Allergy/AdvReac Type Severity Reaction Status Date / Time No Known Drug Allergies Allergy Verified 12/25/24 20:11 PFSH Active Problems All Active Problems (Updated 01/02/25 @ 08:26 by CHARLES Anthony) Obesity affecting in third trimester (Acute) Encounter for screening for Streptococcus B (Acute) Abnormal ultrasound (Acute) Abnormal glucose tolerance affecting , antepartum (Acute) Advanced maternal age during (Acute) Normal in multigravida in second trimester (Acute) Chronic back pain (Acute) Positive test (Acute) Medical History Medical History (Updated 01/02/25 @ 08:26 by CHARLES Anthony) Encounter for other specified screening Encounter for supervision of normal , unspecified, first trimester Incomplete miscarriage Abdominal pain Depression Vomiting Gastritis Delivery normal Family History Family History (Updated 07/21/24 @ 16:54 by CHARLES Anthony) Aunt Breast cancer Mother Ovarian cancer Uncle Lung cancer Throat cancer Other Encounter for other specified screening Incomplete miscarriage Social History Social History (Updated 06/11/24 @ 11:54 by Conchis Steward RN) Smoking Status: Current every day smoker If you are a former smoker, when did you quit? (Date/Year): greater than a year Second hand tobacco smoke exposure: No Do you dip or chew tobacco?: No Do you vape?: No Patient requests smoking cessation consult: No Initiate information on smoking cessation: No Living arrangement: At home Living Condition: With spouse/s.o. 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
[2025-01-09 04:12] LABS: HCT - HEMATOCRIT 39.2 % (37.0-47.0); HGB - HEMOGLOBIN 12.7 g/dL (12.0-16.0); MEAN PLATELET VOLUME 10.2 fL (7.9-10.8); NRBC ABSOLUTE COUNT (AUTO) 0.00 x10^3/uL; NUCLEATED RED BLOOD CELLS AUTO 0.0 /100WBC; PLT - PLATELET COUNT 239 10^3/uL (130-450); RED CELL DISTRIBUTION WIDTH 13.4 % (12.0-15.0)
[2025-01-09] MEDS: SODIUM CHLORIDE FLUSH 0.9% 10 ML SYRINGE IVP SCH (07:23)
[2025-01-09] MEDS: OXYTOCIN/SODIUM CHLORIDE 500 ML IV PRN (07:23)
[2025-01-09] MEDS ORDERED: LABETALOL 5 MG/1 ML 20 ML MDV IVP PRN (07:40)
[2025-01-09] MEDS ORDERED: NALOXONE 0.4 MG/ML VIAL IVP PRN (07:40)
[2025-01-09] MEDS ORDERED: SIMETHICONE CHEW 80 MG TABLET PO PRN (07:40)
[2025-01-09] MEDS ORDERED: OXYTOCIN/SODIUM CHLORIDE 500 ML IV PRN (07:40)
--- NOTE | 2025-01-09 07:50 | DELIVERY NOTE ---
Delivery Note Delivery Comments (Free Text/Narrative) Delivery Comments (Free Text/Narrative): This 39 -year-old, G 6 P 3 @ 39+2 weeks gestation presented early this morning in active labor and in stable condition. Cervix was 5cm and Vertex presentation by delfin's. GBS negative. FHR pattern demonstrated 130 baseline in a primarily category I prior to transition. Normal labor course. She progressed to complete @ 0713 and began spontaneously pushing. Unmedicated labor. SROM @ 0714, clear fluid. : Normal spontaneous vaginal delivery of a viable male on 01/09/2025 @ 0719 no nuchal cord. The was placed on maternal abdomen, stimulated, dried and placed skin to skin. Apgars 8 & 9 @ 1 & 5 minutes. The umbilical cord was allowed to stop pulsating at which time it was doubly clamped by delivering provider and cut by FOB. 3VC. Cord blood was obtained. Fundal massage and gently cord traction applied for active management of the third stage, placenta delivered spontaneously and intact and appeared normal @ 0723. QBL 240. Placenta was not sent to pathology. Pitocin administered via IV for hemostasis and allowed to run freely. Uterine massage was performed until uterus was deemed firm. weight pending at this time. Inspection of the perineum to be intact. Superficial perineal abrasion but no laceration requiring repair. Upon re-inspection the patient was hemostatic. Uterus again massaged and found to be firm. Needle and sponge counts were correct. Uterine fundus firm and there is no excessive bleeding. Tissues well approximated. Skin to skin initiated. Family bonding well. Both mother and baby are in stable condition.
[2025-01-09] MEDS: IBUPROFEN 600 MG TABLET PO PRN (07:57)
[2025-01-09] MEDS: ACETAMINOPHEN 500 MG TABLET PO PRN (07:57)
[2025-01-09] MEDS: CALCIUM CARBONATE CHEW 500 MG TABLET PO SCH (09:30)
[2025-01-09] MEDS: DOCUSATE SODIUM 100 MG CAPSULE PO SCH (09:30)
--- NOTE | 2025-01-09 17:35 | PROCEDURE REPORT ---
Hospitalist Procedure Note Procedure Note Procedure Note: Desires Nexplanon placement for contraceptive management. Has had it in the past. INSERT- Reviewed risks/benefits/alternatives/MOA/ SE profile/timing to effectiveness/overall efficacy. Informed signed consent obtained. Inner, upper aspect of L arm cleansed x3 w/ betadine. 5 ml 2% lidocaine with epi infiltrated to adequate anesthesia. Nexplanon device inserted in normal, sterile fashion per manufacture's guidelines w/o incident. Palpable to self and patient. Hemostatic, pressure dressing applied. Patient tolerated well. Pharmacy states no availability for Nexplanon at hospital pharmacy Nexplanon obtained from clinic supply SN: [id number] Exp 2026-11 Lot 1 [id number]
[2025-01-09] MEDS ORDERED: MEASLES,MUMPS & RUBELLA VACC 0.5 ML VIAL SUBQ ONE (17:44)
[2025-01-09] MEDS: LIDOCAINE 2%-EPI 1:100000 20 ML MDV SUBQ ONE (18:07)
[2025-01-09] MEDS: ETONOGESTREL 68 MG IMPLANT SUBQ ONE (18:07)
[2025-01-09 23:01] VITALS: O2SAT 98
--- NOTE | 2025-01-10 08:50 | Discharge Summary ---
Discharge Summary HPI History of Present Illness: Date of Admission: 01/09/2025 Date of Discharge: 01/10/2025 Diagnosis on admission: 39 yo @ 39+2 weeks gestation by 8+4 wk U/S transitional labor FHR 130 Cat I GBS NEG Diagnosis on Discharge 39 yo s/p unmedicated SVE on 01/09/2025 Intact perineum Unremarkable course Physical exam: Normocephalic, atraumatic No increased work of breathing Normal uterine involution, FF below umbilicus scant rubra bleeding minimal perineal discomfort. Bilateral LE's trace edema Mood is good. Brief History: This 39 -year-old, G 6 P 3 @ 39+2 weeks gestation presented early this morning in active labor and in stable condition. Cervix was 5cm and Vertex presentation by delfin's. GBS negative. FHR pattern demonstrated 130 baseline in a primarily category I prior to transition. Normal labor course. She progressed to complete @ 0713 and began spontaneously pushing. Unmedicated labor. SROM @ 0714, clear fluid. : Normal spontaneous vaginal delivery of a viable male on 01/09/2025 @ 0719 no nuchal cord. The was placed on maternal abdomen, stimulated, dried and placed skin to skin. Apgars 8 & 9 @ 1 & 5 minutes. The umbilical cord was allowed to stop pulsating at which time it was doubly clamped by delivering provider and cut by FOB. 3VC. Cord blood was obtained. Fundal massage and gently cord traction applied for active management of the third stage, placenta delivered spontaneously and intact and appeared normal @ 0723. QBL 240. Placenta was not sent to pathology. Pitocin administered via IV for hemostasis and allowed to run freely. Uterine massage was performed until uterus was deemed firm. Inspection of the perineum to be intact. Superficial perineal abrasion but no laceration requiring repair. Upon re-inspection the patient was hemostatic. Uterus again massaged and found to be firm. She has been doing well in her course. She is ambulating and tolerating a regular diet. She is urinating without difficulty and her lochia is normal. She received the Nexplanon placement last evening. Her pain is well controlled without narcotic management. She will be discharged to home today on day #1 and encouraged IBU, tylenol and stool softeners PRN. She intends to follow up with [facility] in 1 week for telehealth and an appointment has been scheduled for her over lunchtime on 01/15/2025. She has been given precautions to call if she has any new or worsening sx such as fevers, chills, abdominal pain, increasing bleeding, or foul smelling vaginal lochia. preeclamptic precautions reviewed as well. Rubella equivocal. MMR Vaccination order signed. ALLERGIES Allergies Allergy/AdvReac Type Severity Reaction Status Date / Time No Known Drug Allergies Allergy Verified 12/25/24 20:11 MEDICATIONS Ambulatory Orders Medication Instructions Recorded Confirmed vits no.126-ferrous fum 1 tab PO QDAY 5 01/09/25 28 mg iron-folic acid 800 mcg tablet (Classic ) calcium carbonate (Tums) 200 mg PO BID 10/11/2401/09 lancets 21 gauge (Color Lancets) #200 ea 11/12/24 080 10/28 blood-glucose meter (True Metrix #1 ea 12/09/24 Air Glucose Meter) blood sugar diagnostic (True #100 ea 12/13/24 01/08/25 Metrix Glucose Test Strip) PHYSICAL EXAM AT DISCHARGE Vital Signs: Vital Signs x48h Temp Pulse Resp BP 01/10/25 04:00 36.3 C L 78 17 126/67 LABS 01/09/25 03:55 Discharge Plan Discharge Patient Disposition: 01 Home, Self Care Medically Cleared Date:: 01/10/25 Prescriptions: Continued (DME) lancets [Color Lancets] 21 gauge misc See Rx Instructions .Route Qty: 200 2RF Rx Instructions: Use to take blood glucose 4x/day (DME) blood-glucose meter [True Metrix Air Glucose Meter] Misc See Rx Instructions .ROUTE .COMPLEX Qty: 1 0RF Dose Instruction: USE DIRECTED TO TEST BLOOD GLUCOSE 4 TIMES DAILY Rx Instructions: USE DIRECTED TO TEST BLOOD GLUCOSE 4 TIMES DAILY (DME) True Metrix Glucose Test Strip Strip See Rx Instructions .ROUTE .COMPLEX Qty: 100 0RF Dose Instruction: USE 1 STRIP TO CHECK GLUCOSE 4 TIMES DAILY DIRECTED Rx Instructions: USE 1 STRIP TO CHECK GLUCOSE 4 TIMES DAILY DIRECTED Classic 28 mg iron- 800 mcg tablet 1 tab PO QDAY calcium carbonate [Tums] 200 mg calcium (500 mg) tablet,chewable 200 mg PO BID Activity Restrictions: No Restrictions Print Language: Gabonese Patient Instructions: How to Breastfeed, Expressing Your Milk, Holds
[2025-01-10 09:24] VITALS: BP 127/75; TEMP 97.9
--- NOTE | 2025-01-10 14:22 | Labor Flowsheet ---
Labor Flowsheet Datetime Report Generated by CPN: 01/10/2025 14:22 Datetime: 01/10/2025 09:10 VITAL SIGNS NBP Sys/Mery/Mean (mmHg): 127 : 75 : 86 Pulse: 96 Datetime: 01/09/2025 15:18 SpO2 (%): 98 Datetime: 01/09/2025 09:45 Communication Comments: Fundal check Firm/ + midline/ scant Datetime: 01/09/2025 09:34 Respirations: 18 Temperature (C): 36.6 Datetime: 01/09/2025 08:20 Membranes Ruptured Date/Time: 01/09/2025 07:14 Datetime: 01/09/2025 07:21 MEDICATIONS Medication Comments: Pit bolus started Datetime: 01/09/2025 07:17 Patient Care Comments: Patient pushing with coaching Datetime: 01/09/2025 07:15 Stage of : Labor COMMUNICATION Communication: RN at Bedside; RN Reviewed Strip; Provider at Bedside Datetime: 01/09/2025 07:14 Membranes Rupture Method: Spontaneous Amniotic Fluid Color: Clear Amniotic Fluid Amount: Moderate Datetime: 01/09/2025 07:13 VAGINAL EXAM Dilatation (cm): 10.0 Effacement (%): 100 Exam by: CNM [place] Datetime: 01/09/2025 07:12 Comments: difficulty tracing FHR d/t maternal pushing Datetime: 01/09/2025 07:00 PATIENT CARE Patient Position/Activity: Left Lateral Datetime: 01/09/2025 06:12 Station: 0 Datetime: 01/09/2025 05:30 UTERINE ACTIVITY Monitor Mode: External Frequency (min): 3-5 Quality: Moderate Duration (sec): 50-100 Pattern: Normal: <= 5 Contractions in 10 Minutes Resting Tone (Palpate): Relaxed ASSESSMENT A Monitor Mode: Telemetry FHR Baseline Rate : 130 Variability: Moderate 6-25 bpm Accelerations: 15X15 Decelerations: Early; Late Datetime: 01/09/2025 04:59 Temperature Route: Oral LaborFlag: Labor
--- NOTE | 2025-01-19 10:43 | PROVIDER PROGRESS NOTE ---
HPI Current : Current EDU 01/19/25 Gestation 38 Weeks and 4 Days Para 3 Vital Signs Temperature 36.6 C 01/10/25 09:23 Pulse Rate 95 01/10/25 09:23 Respiratory Rate 20 01/10/25 09:23 Blood Pressure 127/75 01/10/25 09:23 O2 Saturation 98 01/10/25 09:23 Procedures OB Procedure Performed: NST Service Date of procedure: 01/09/25 Plan Plan: This documentation is ment to clarify that the documentation as copied and pasted below is her outpatient triage note to include details of her reactive NST. Reactive NST Category I FHR, 125, moderate variability, + accelerations, no significant decelerations. PATIENT: AMBER HILTON PREFERRED NAME: PRONOUNS: MEDICAL RECORD#:[id number] DATE OF :1985 DATE OF SERVICE:01/09/25 cc: CHARLES Anthony [facility] report # [id number] Plan Plan: 39yo presents to L&D triage @ 39+2 weeks gestation after regular contractions through the evening/night. Upon presentation she was 5cm and angella q 8-10 minutes. Minimal cervical change in 90 minutes. However she progressed to 7cm by the end of the third hour and she was admitted.
== END 2025-01-10 09:50 | disposition home or self-care (01) | DRG 807 ==
LOC: FBP 00:19
PROVIDERS: ADMIT Nurse Practitioner; ATTEND Nurse Practitioner